=== PATIENT | female | born 1950 | race Asian ===

== ENCOUNTER → 2016-10-12 | Outpatient (CLI) | payer OTHER | LOC: FIMAGING 14:15 | PROVIDERS: ATTEND Family Medicine | DX: E04.9 Nontoxic goiter, unspecified (principal) ==

== ENCOUNTER → 2017-04-28 | Outpatient (CLI) | payer OTHER | LOC: FIMAGING 13:08 | PROVIDERS: ATTEND Family Medicine | DX: Z12.31 Encounter for screening mammogram for malignant neoplasm of breast (principal) | CPT/HCPCS: G0202 ==

== ENCOUNTER → 2017-08-17 | Outpatient (CLI) | payer OTHER | LOC: FIMAGING 10:27 | PROVIDERS: ATTEND Physician Assistant | DX: R10.13 Epigastric pain (principal) ==

== ENCOUNTER → 2017-09-07 | Outpatient (CLI) | payer OTHER | LOC: FIMAGING 12:09 → EDSTATUS 12:12 | PROVIDERS: ATTEND Family Medicine | DX: M54.5 Low back pain (principal); M21.962 Unspecified acquired deformity of left lower leg; M43.9 Deforming dorsopathy, unspecified ==

== ENCOUNTER → 2018-04-29 | Outpatient (CLI) | payer OTHER | LOC: FIMAGING 09:57 | PROVIDERS: ATTEND Family Medicine | DX: Z12.31 Encounter for screening mammogram for malignant neoplasm of breast (principal) ==

== ENCOUNTER → 2018-08-02 | Outpatient (CLI) | payer OTHER | LOC: FIMAGING 09:01 | PROVIDERS: ATTEND Physician Assistant | DX: R10.13 Epigastric pain (principal); K82.8 Other specified diseases of gallbladder | CPT/HCPCS: 78227; A9537 ==

== ENCOUNTER 2018-08-23 13:52 | Day surgery (SDC) | payer OTHER ==
--- NOTE | 2018-08-23 13:42 | PDHPUP ---
History & Physical Update H&P update statement: This history and physical update is based on an assessment of the patient which was completed after admission or registration (within 24 hours), but prior to the surgery/procedure. H&P update: H&P reviewed & patient examined, no change in patient's condition since H&P completed
[~2018-08-23 13:52] MED LIST: cefOXitin SODIUM 2 GM in NS 100 ML IV ONE
[2018-08-23] MEDS ORDERED: LR 1,000 ML IV ONE (14:12)
[2018-08-23] MEDS ORDERED: LIDOCAINE 1% 2 ML INJ ID PRN (14:12)
[2018-08-23] MEDS ORDERED: LIDOCAINE 1% 2 ML INJ ONE (14:34)
[2018-08-23] MEDS ORDERED: ceFAZolin 1 GM/5 ML SYR ONE (16:33)
[2018-08-23] MEDS ORDERED: HEPARIN 1000 UNIT/1 ML MDV ONE (16:33)
[2018-08-23] MEDS ORDERED: BUPIVACAINE 0.5% 30 ML SDV ONE (16:33)
--- NOTE | 2018-08-23 16:51 | POSTOPPROG ---
Post Op Note Date of Operation: 08/23/18 Surgeon: Tierra Hickman Collision Repair Technician: Tierra Hickman Anesthesiologist: Ana M Bruce Anesthesia: GET(General Endotracheal) Pre-op Diagnosis: biliary dyskinesia Post-op Diagnosis: same Procedure: lap magdalene Findings: thin walled gallbladder, no adhesions, no stones, small ducts Inf/Abcess present in the surg proc area at time of surgery?: No EBL: Minimal Complications: none Specimen(s): gallbladder to pathology
[2018-08-23] MEDS ORDERED: MIDAZOLAM 2 MG/2 ML VIAL ONE (16:55)
[2018-08-23] MEDS ORDERED: fentaNYL 250 MCG/5 ML INJ ONE (16:59)
[2018-08-23] MEDS ORDERED: PROPOFOL/EMULSION 500 MG/50 ML BOTTLE IV ONE (17:00)
[2018-08-23] MEDS ORDERED: MIDAZOLAM 2 MG/2 ML VIAL IVP ONE (17:24)
--- NOTE | 2018-08-23 17:27 | PDANEPAE ---
ANE History of Present Illness 68 year old female for laparoscopic cholecystectomy. History of HTN and GERD. ANE Past Medical History - Cardiovascular History Hx Hypertension: Yes Hx Arrhythmias: No Hx Chest Pain: No Hx Coronary Artery / Peripheral Vascular Disease: No Hx CHF / Valvular Disease: No Hx Palpitations: No Cardiovascular History Comment: RBBB IN PAST - ASYMPTOMATIC. HYPERLIPIDEMIA - Pulmonary History Hx COPD: No Hx Asthma/Reactive Airway Disease: No Hx Recent Upper Respiratory Infection: No Hx Oxygen in Use at Home: No Hx Sleep Apnea: No Sleep Apnea Screening Result - Last Documented: Negative - Neurologic History Hx Cerebrovascular Accident: No Hx Seizures: No Hx Dementia: No - Endocrine History Hx Diabetes: No Endocrine History Comment: HYPOTHYROID - Renal History Hx Renal Disorders: No - Liver History Hx Hepatic Disorders: Yes Hepatic History Comment: NAUSEA & TENDERNESS - GALL BLADDER - Neurological & Psychiatric Hx Hx Neurological and Psychiatric Disorders: No - Cancer History Hx Cancer: No - Congenital Disorder History Hx Congenital Disorders: No - GI History Hx Gastrointestinal Disorders: Yes Gastrointestinal History Comment: ACID REFLUX - Other Health History Other Health History: NEG - Chronic Pain History Chronic Pain: Yes (LOW BACK PAIN) - Surgical History Prior Surgeries: CATARACTS. GUM SURGERY ANE Review of Systems Review of systems is: negative Review of Systems: - Exercise capacity METS (RN): 4 METS ANE Patient History - Allergies Allergies/Adverse Reactions: No Known Allergies Allergy (Unverified 08/19/18 13:43) - Home Medications Home Medications: HCTZ (*) 08/22/18 [Last Taken 08/22/18] Latanoprost 0.005% Eye Drop 08/22/18 [Last Taken 08/23/18 07:00] Levothyroxine 08/22/18 [Last Taken 08/22/18] Losartan Potassium 08/22/18 [Last Taken 08/22/18] Omeprazole 08/22/18 [Last Taken 08/23/18 05:00] Zantac DAILY 08/23/18 [Last Taken 08/22/18] - NPO status NPO Since - Liquids (Date): 08/23/18 NPO Since - Liquids (Time): 05:45 NPO Since - Solids (Date): 08/23/18 NPO Since - Solids (Time): 05:45 - Smoking Hx Smoking Status: Never smoked ANE Labs/Vital Signs - Vital Signs Blood Pressure: 144/94 Heart Rate: 63 Respiratory Rate: 12 O2 Sat (%): 99 Height: 167.64 cm Weight: 58.967 kg ANE Physical Exam - Airway Neck exam: FROM Mallampati Score: Class 1 Mouth exam: normal dental/mouth exam - Pulmonary Pulmonary: no respiratory distress - Cardiovascular Cardiovascular: regular rate and rhythym - ASA Status ASA Status: II ANE Anesthesia Plan Anesthesia Plan: general endotracheal anesthesia
[2018-08-23] MEDS ORDERED: PROMETHAZINE HCL 25 MG/ML INJ IVP PRN (17:29)
[2018-08-23] MEDS ORDERED: ALBUTEROL 3 ML DEYVIAL IH PRN (17:29)
[2018-08-23] MEDS ORDERED: ONDANSETRON 4 MG/2 ML VIAL IVP PRN (17:29)
[2018-08-23] MEDS ORDERED: NALOXONE HCL 0.4 MG/ML INJ IVP PRN (17:29)
[2018-08-23] MEDS ORDERED: LABETALOL HCL 5 MG/ML 20 ML MDV IVP PRN (17:29)
[2018-08-23] MEDS ORDERED: oxyCODONE IR 5 MG TAB PO PRN (17:29)
[2018-08-23] MEDS ORDERED: LR 500 ML IV PRN (17:29)
[2018-08-23] MEDS ORDERED: HYDROmorphONE/DILAUDID 2 MG/ML INJ IVP PRN (17:29)
--- NOTE | 2018-08-23 18:08 | POSTANESTH ---
Post Anesthetic Evaluation Cardiovascular Status: Normal, Stable Respiratory Status: Normal, Stable Level of Consciousness/Mental Status: Mildly Sleepy, Arousable Pain Control: Adequate, Prn Tx Ordered Nausea/Vomiting Control: Adequate, Prn Tx Ordered Complications Possibly Related to Anesthesia: None Noted
[2018-08-23] MEDS ORDERED: fentaNYL 100 MCG/2 ML INJ ONE (18:29)
[2018-08-23] MEDS: fentaNYL 100 MCG/2 ML INJ IVP PRN ×2 (18:32→18:42)
[2018-08-23 19:11] VITALS: BP 157/95
--- NOTE | 2018-08-24 11:27 | GOP ---
DATE OF OPERATION: 08/23/2018 SURGEON: Berry Sanders MD PREOPERATIVE DIAGNOSIS: Biliary dyskinesia. POSTOPERATIVE DIAGNOSIS: Biliary dyskinesia. PROCEDURE PERFORMED: Laparoscopic cholecystectomy. FINDINGS: The patient was found to have a distended large gallbladder with small ducts, but no obvio us stones and minimal inflammation. The liver appeared to be good and healthy. No other major findi ngs were seen in the right upper quadrant. ESTIMATED BLOOD LOSS: Negligible. She tolerated the procedure well and was taken to the recovery room in good condition. There were no complications. DESCRIPTION OF PROCEDURE: The patient was taken to the operating room where she received satisfactor y general endotracheal anesthesia by Dr. Sierra. She was placed in the supine position, prepped and d raped in the usual sterile fashion. A periumbilical incision was made. A Veress needle was inserted . Pneumoperitoneum was established. Trocar was introduced. Laparoscope introduced. Good visualiza tion was obtained. Three other trocars were placed in the upper abdomen under direct vision. The ga llbladder was elevated up. It was quite large and distended. The cystic triangle was carefully diss ected free. A good clear view was established. The cystic duct and cystic artery were multiply hemo clipped and divided with care to avoid injury to the common bile duct. The peritoneum of the gallbla dder was incised and the gallbladder was dissected free from the bed and hepatic fossa and extracted through the upper midline port site. Hemostasis was assured. The wound was irrigated. The liver wa s inspected and appeared to be quite normal and no other abnormalities could be visualized with the s cope. Trocars were then removed under direct vision. Trocar sites were closed with 0 Vicryl for the fascia, 4-0 Monocryl subcuticular stitch for the skin. All layers infiltrated with 0.5% Marcaine. /[id number]/MODL
== END 2018-08-23 19:44 | disposition home or self-care (01) ==
LOC: FSGY 13:52
PROVIDERS: ATTEND Surgery
PROC: 0FT44ZZ Resection of Gallbladder, Percutaneous Endoscopic Approach (ICD-10-PCS; principal; 2018-08-23 15:45)
DX: K80.50 Calculus of bile duct without cholangitis or cholecystitis without obstruction (principal); E78.5 Hyperlipidemia, unspecified; K21.9 Gastro-esophageal reflux disease without esophagitis; I10 Essential (primary) hypertension
CPT/HCPCS: J0694; J2250; J2704; J3010

== ENCOUNTER 2018-12-31 20:29 | Emergency (ER) | payer OTHER ==
--- NOTE | 2018-12-31 20:45 | EDPHY ---
H & P Time Seen by Provider: 12/31/18 20:30 HPI/ROS: CHIEF COMPLAINT: Syncope HISTORY OF PRESENT ILLNESS: The patient is a 68-year-old female who presents emergency department after having a syncopal episode. Patient was at a alliance party in sitting on a high top stool. She suddenly fell back losing consciousness. The person behind her caught her. She was lowered to the ground. She did not sustain any trauma. She was initially slightly confused per bystander. The patient states that she felt very sweaty. She subsequently felt nauseated and went to the bathroom. She had an episode of vomiting and diarrhea. Patient was able to walk to the ambulance. The patient denies any chest pain or shortness of breath. She feels better at this point but slightly nauseated. REVIEW OF SYSTEMS: 10 systems were reveiwed and are negative with the exception of the elements mentioned in the history of present illness. Past Medical/Surgical History: Includes hypertension, thyroid disease Smoking Status: Never smoked Physical Exam: Vitals noted GENERAL: Well-appearing, in no acute distress, alert. HEENT: Eyes normal to inspection, normal pharynx, no signs of dehydration. NECK: Normal, supple. RESPIRATORY: Clear to auscultation bilaterally, no rales, rhonchi or wheezing. CVS: Regular rate and rhythm, no rubs, murmurs, or gallops. ABDOMEN: Soft, nontender, nondistended, no organomegaly. BACK: Normal to inspection, no CVA tenderness. SKIN: Normal color, no rash, warm, dry. No pallor. EXTREMITIES: No pedal edema, no calf tenderness, no Homans sign or cords, no joint swelling. NEURO/PSYCH: Higher functions: Alert and Oriented x3. Normal speech and cognition. Normal mood and affect. Cranial nerves: Normal as tested. Cerebellar: Normal as tested. Good finger to nose, good [id number], normal gait. Peripheral exam: Normal motor exam. Normal sensation. Constitutional: Initial Vital Signs Temperature (C) 36.7 C 12/31/18 20:31 Heart Rate 64 12/31/18 20:31 Respiratory Rate 16 12/31/18 20:31 Blood Pressure 108/80 12/31/18 20:31 O2 Sat (%) 98 12/31/18 20:31 O2 Delivery Mode Room Air Allergies/Adverse Reactions: No Known Allergies Allergy (Verified 12/31/18 20:34) Home Medications: Medication Instructions Recorded HCTZ (*) 08/22/18 Latanoprost 0.005% Eye Drop 08/22/18 Levothyroxine 08/22/18 Losartan Potassium 08/22/18 Omeprazole 08/22/18 Hydrocodone/Acetaminophen [[place] 1 - 2 each PO Q4-6PRN PRN #30 08/23/18 5-325 Tablet] tablet Zantac DAILY 08/23/18 Medical Decision Making ED Course/Re-evaluation: In the emergency department I discussed possible etiologies with the patient. I answered all her questions. IV was placed by EMS. Laboratory studies, EKG and chest x-ray were ordered. EKG shows normal sinus rhythm, normal rate, right bundle branch block, normal intervals. There are no ST or T-wave abnormalities. Differential Diagnosis: My differential includes but is not limited to ACS, acute IA, dysrhythmia, dissection, aneurysm, electrolyte abnormality, sugar abnormality Departure - Departure Disposition: [facility] Inpatient Acute Clinical Impression: Syncope Qualifiers: Syncope type: unspecified Qualified Code(s): R55 - Syncope and collapse Condition: Good Referrals: Patient,NotPresent [Primary Care Provider] - As per Instructions
[2018-12-31] MEDS ORDERED: NS 500 ML IV ONE (20:46)
[2018-12-31 20:53] LABS: PLATELET COUNT 223 10^3/uL (150-400)
[2018-12-31] MEDS ORDERED: ONDANSETRON DISINTEGRATING 4 MG TAB PO PRN (22:08)
[2018-12-31] MEDS ORDERED: ONDANSETRON 4 MG/2 ML VIAL IVP PRN (22:08)
[2018-12-31] MEDS ORDERED: ACETAMINOPHEN 325 MG TAB PO PRN (22:08)
--- NOTE | 2018-12-31 22:13 | CPEKG ---
Test Reason : OPEN Blood Pressure : / mmHG Vent. Rate : 054 BPM Atrial Rate : 055 BPM P-R Int : 142 ms QRS Dur : 136 ms QT Int : 464 ms P-R-T Axes : 043 060 015 degrees QTc Int : 440 ms Sinus rhythm Right bundle branch block Confirmed by Angie Ocampo ([id number]) on 12/31/2018 10:12:41 PM Referred By: ANGIE OCAMPO Confirmed By:Angie Ocampo
[2018-12-31 23:20] VITALS: BP 148/96
--- NOTE | 2018-12-31 23:20 | PDGENHP ---
History and Physical - Chief Complaint Syncope - History of Present Illness 68 yo F w/ hx of HTN and hypothyroid presents after syncopal event. The patient was a cocktail libertarian and had a few glasses of wine. She had not had a drink in several months. While sitting on a stool she felt nauseous and sweaty. She then experienced a brief syncopal event. She was caught by a friend from behind and did not experience any trauma. She returned to baseline mental status quickly; denies chest pain, shortness of breath, or shaking movements. She then went to the bathroom and had an episode of vomiting. She continued to feel nauseous and also developed a headache until her arrival here. After some IVF in the ED she feels much improved. Her work-up in the ED is reassuring. Her ECG displays NSR and RBBB, which she states is chronic. Vital signs, laboratory work-up, exam, and CXR are all reassuring. The patient is asking to go home. I explained to here that this is likely vasovagal syncope but it is difficult to rule out other etiologies without further observation and work up. She and her were ok with this and preferred to follow up with her PCP. Case discussed with Dr. Knight; records reviewed and summarized above. History Information - Allergies/Home Medication List Allergies/Adverse Reactions: No Known Allergies Allergy (Verified 12/31/18 20:34) Home Medications: HCTZ (*) 08/22/18 [Last Taken 08/22/18] Latanoprost 0.005% Eye Drop 08/22/18 [Last Taken 08/23/18 07:00] Levothyroxine 08/22/18 [Last Taken 08/22/18] Losartan Potassium 08/22/18 [Last Taken 08/22/18] Omeprazole 08/22/18 [Last Taken 08/23/18 05:00] Zantac DAILY 08/23/18 [Last Taken 08/22/18] I have personally reviewed and updated: family history, medical history - Past Medical History GERD, hypertension Additional medical history: Hypothyroid - Surgical History Reports: cholecystectomy - Family History Positive for: cancer, diabetes type II, stroke - Social History Smoking Status: Never smoked Review of Systems Review of Systems: ROS: 10pt was reviewed & negative except for what was stated in HPI & below Physical Exam Physical Exam: Temp Pulse Resp BP Pulse Ox 36.6 C 70 18 119/78 98 12/31/18 22:00 12/31/18 22:00 12/31/18 22:00 12/31/18 22:00 12/31/18 22:00 Constitutional: no apparent distress, not in pain Eyes: PERRL, EOMI Ears, Nose, Mouth, Throat: moist mucous membranes, no oral mucosal ulcers Cardiovascular: regular rate and rhythym, no murmur, rub, or gallop Respiratory: no respiratory distress, clear to auscultation Gastrointestinal: normoactive bowel sounds, soft, non-tender abdomen Skin: warm, normal color Neurologic: AAOx3, CN II-XII Intact Psychiatric: interacting appropriately, not anxious Lab Data & Imaging Review 12/31/18 20:30 12/31/18 20:30 WBC 5.68 10^3/uL (3.80-9.50) 12/31/18 20:30 RBC 4.42 10^6/uL (4.18-5.33) 12/31/18 20:30 Hgb 13.8 g/dL (12.6-16.3) 12/31/18 20:30 Hct 39.4 % (38.0-47.0) 12/31/18 20:30 MCV 89.1 fL (81.5-99.8) 12/31/18 20:30 MCH 31.2 pg (27.9-34.1) 12/31/18 20:30 MCHC 35.0 g/dL (32.4-36.7) 12/31/18 20:30 RDW 12.2 % (11.5-15.2) 12/31/18 20:30 Plt Count 223 10^3/uL (150-400) 12/31/18 20:30 MPV 9.3 fL (8.7-11.7) 12/31/18 20:30 Neut % (Auto) 42.2 % (39.3-74.2) 12/31/18 20:30 Lymph % (Auto) 50.2 % (15.0-45.0) H 12/31/18 20:30 [place] % (Auto) 5.8 % (4.5-13.0) 12/31/18 20:30 Eos % (Auto) 1.1 % (0.6-7.6) 12/31/18 20:30 Baso % (Auto) 0.5 % (0.3-1.7) 12/31/18 20:30 Nucleat RBC Rel Count 0.0 % (0.0-0.2) 12/31/18 20:30 Absolute Neuts (auto) 2.40 10^3/uL (1.70-6.50) 12/31/18 20:30 Absolute Lymphs (auto) 2.85 10^3/uL (1.00-3.00) 12/31/18 20:30 Absolute Monos (auto) 0.33 10^3/uL (0.30-0.80) 12/31/18 20:30 Absolute Eos (auto) 0.06 10^3/uL (0.03-0.40) 12/31/18 20:30 Absolute Basos (auto) 0.03 10^3/uL (0.02-0.10) 12/31/18 20: Absolute Nucleated RBC 0.00 10^3/uL (0-0.01) 12/31/18 20:30 Immature Gran % 0.2 % (0.0-1.1) 12/31/18 20:30 Immature Gran # 0.01 10^3/uL (0.00-0.10) 12/31/18 20:30 Sodium 137 mEq/L (135-145) 12/31/18 20:30 Potassium 3.2 mEq/L (3.5-5.2) L 12/31/18 20: Chloride 100 mEq/L (97-110) 12/31/18 20: Carbon Dioxide 23 mEq/l (22-31) 12/31/18 20:30 Anion Gap 14 mEq/L (6-14) 12/31/18 20:30 BUN 17 mg/dL (7-23) 12/31/18 20:30 Creatinine 1.0 mg/dL (0.6-1.0) 12/31/18 20:30 Estimated GFR 55 12/31/18 20:30 Glucose 83 mg/dL (70-100) 12/31/18 20:30 Calcium 9.7 mg/dL (8.5-10.4) 12/31/18 20:30 POC Troponin I 0.00 ng/mL (0.00-0.08) 12/31/18 20:39 Imaging Review: Imaging Impressions Chest X-Ray 12/31/18 20:47 Impression: No acute findings in the chest. Visualized and Interpreted EKG results: Yes EKG Interpretation: Positive for: normal sinsus rhythm, right bundle branch block Assessment & Plan Assessment: 68 yo F w/ hx of HTN and hypothyroid presents with vasovagal syncope.. Plan: 1. Vasovagal syncope - Patient presents after brief episode of syncope with reassuring work-up. She is feeling well at the time of my evaluation and asking to go home. She understands there is a small chance of other syncopal etiologies , but she prefers to follow up as an outpatient with PCP. - DC to follow up w/ PCP - Discharge instructions given - Instructed rest, fluids, and return precautions given
--- NOTE | 2018-12-31 23:27 | PDDCSUM ---
Discharge Summary Discharge Summary: Date of Admission: 12/31/18 Date of Discharge: 12/31/18 Condition: Fair Procedures performed: None Reason for admission: Syncope Brief hospital course: Patient presented after episode of syncope. Her work-up was reassuring including ECG (NSR w/ chronic RBBB), laboratory work-up, vital signs, CXR, and physical exam. Patient felt at baseline after IVF and asked to go home. Her presentation is most likely consistent with vasovagal syncope, but other etiologies cannot be ruled out without further observation and testing. The patient understood this and preferred to follow up as an outpatient with PCP. I feel this is safe and I explained detailed return precautions to the patient. The patient was discharged from the ED shortly after the decision to admit was made. Please see H&P from the same date for further details. Follow up with PCP: (Dr. Mariana Monet) Items for follow-up: Syncope, RBBB Medication changes: None
[2019-01-01] MEDS ORDERED: ENOXAPARIN 40 MG/0.4 ML SYR SC SCH (09:00)
== END 2018-12-31 23:22 | disposition home or self-care (01) ==
LOC: EDUNIT# → UNDOADMOB 22:02
DX: R55 Syncope and collapse (principal); I45.10 Unspecified right bundle-branch block; I10 Essential (primary) hypertension; E07.9 Disorder of thyroid, unspecified
CPT/HCPCS: 84484-ER